=== PATIENT | female | born 1990 | race Caucasian/White ===

== ENCOUNTER 2023-01-13 09:23 | Emergency (ER) | payer MEDICAID ==
[~2023-01-13] VITALS: Ht 162.6 cm; Wt 72.6 kg
[2023-01-13 09:23] VITALS: BP_SYST 112; PULSE 89; RESP 18; TEMP 97.2; O2SAT 95
--- NOTE | 2023-01-13 09:24 | NUR ---
BROUGHT BACK TO BED #8 AND TRIAGED. REPORT GIVEN TO COURT
--- NOTE | 2023-01-13 09:30 | NUR ---
Patient had labs drawn and is awaiting ultrasound exam at this time.
[2023-01-13 09:53] LABS: BASOPHILS % (AUTO) 0.5 % (0.0-2.0); EOSINOPHILS # (AUTO) 0.1 K/uL (0.0-0.4); EOSINOPHILS % (AUTO) 0.9 % (0.0-4.0); HEMATOCRIT 40.5 % (36-48); HEMOGLOBIN 13.7 g/dL (12.0-16.0); LYMPHOCYTES # (AUTO) 2.2 K/uL (1.0-5.5); LYMPHOCYTES % (AUTO) 34.8 % (20.5-51.5); MEAN CORPUSCULAR HEMOGLOBIN 30 pg (27-31); MEAN CORPUSCULAR HGB CONC 34 % (32-36); MEAN CORPUSCULAR VOLUME 89 fL (79.0-98.0); MONOCYTES # (AUTO) 0.3 K/uL (0.0-1.0); MONOCYTES % (AUTO) 5.1 % (1.7-9.3); NEUTROPHILS # (AUTO) 3.8 K/uL (1.8-7.7); NEUTROPHILS % (AUTO) 58.7 % (40.0-70.0); PLATELET COUNT (AUTO) 248 K/uL (130-430); RED BLOOD CELL COUNT(AUTO) 4.53 MIL/uL (4.2-6.2); WHITE BLOOD COUNT (AUTO) 6.5 K/uL (4.8-10.8)
[2023-01-13 10:48] VITALS: BP_SYST 111; PULSE 75; RESP 18; O2SAT 95
[2023-01-13 10:58] LABS: BILIRUBIN,URINE NEGATIVE (NEGATIVE); BLOOD, URINE NEGATIVE (NEGATIVE); COLOR,URINE YELLOW (YELLOW); GLUCOSE,URINE NEGATIVE (NEGATIVE); KETONES,URINE NEGATIVE (NEGATIVE); LEUKOCYTE ESTERASE ,URINE NEGATIVE (NEGATIVE); NITRITE, URINE NEGATIVE (NEGATIVE); PH,URINE 7.5 (5.0-8.0); PROTEIN URINE NEGATIVE (NEGATIVE)
[2023-01-13 11:05] LABS: CLARITY/URINE SLIGHTLY HAZY (CLEAR)
--- NOTE | 2023-01-13 11:21 | NUR ---
Ultrasound completed at this time.
--- NOTE | 2023-01-13 12:15 | NUR ---
MD back in room to discuss case and reevaluate with patient at this time.
--- NOTE | 2023-01-13 12:33 | NUR ---
Patient given written and verbal discharge instructions and verbalizes understanding. ER MD discussed with patient the results and treatment provided. Patient advised to return to ED in 2 days for follow up. Patient in stable condition. ID arm band removed. Pain Scale 0/10 at this time.. Opportunity for questions provided and answered.
== END 2023-01-13 12:33 | disposition home or self-care (01) ==
LOC: SED 09:23
DX: O20.9 Hemorrhage in early pregnancy, unspecified (principal); Z3A.09 9 weeks gestation of pregnancy; Z79.899 Other long term (current) drug therapy
CPT/HCPCS: 36415; 76802; 81003; 81025; 84702; 85025; 86900; 86901; 99284

== ENCOUNTER 2023-01-15 09:52 | Emergency (ER) | payer MEDICAID ==
[~2023-01-15] VITALS: Ht 157.5 cm; Wt 68.9 kg
[2023-01-15 10:18] VITALS: BP_SYST 108; PULSE 76; RESP 18; TEMP 98.1; O2SAT 99
[2023-01-15] MEDS ORDERED: MISO200T PO (12:12)
[2023-01-15] MEDS ORDERED: NAPR-688 PO (12:12)
[2023-01-15 12:22] VITALS: BP_SYST 101; PULSE 84; RESP 16; TEMP 97.6; O2SAT 96
== END 2023-01-15 12:22 | disposition home or self-care (01) ==
LOC: SED 09:52
DX: O03.4 Incomplete spontaneous abortion without complication (principal); Z3A.01 Less than 8 weeks gestation of pregnancy; Z79.899 Other long term (current) drug therapy
CPT/HCPCS: 36415; 84702; 99283